=== PATIENT | male | born 1955 | race Caucasian/White ===

== ENCOUNTER 2016-09-30 03:02 | Emergency (ER) | payer BC ==
[~2016-09-30] VITALS: Ht 170.2 cm; Wt 116.4 kg
[~2016-09-30 03:02] MED LIST: ANTIVERT12.5 MG PO; ANTIVERT25 MG PO; ATORVASTATIN 40 MG T; LEVOFLOXACIN500 MG; Levaquin PO; Lipitor PO; NO MEDS; NOHOMEMEDS
[2016-09-30 04:03] LABS: EOSINOPHIL (%) 1.3 % (0-5); EOSINOPHIL COUNT 0.1 K/uL (0-0.3); HEMATOCRIT 50.1 % (38.0-50.0); IMMATURE GRANULOCYTE (%) 0.5 % (0.0-0.7); INSTRUMENT ABS NEUTROPHIL CT 5.2 K/uL; MCH 29.7 PG (29.0-34.0); MCHC 33.3 G/DL (30.0-36.0); MCV 89.1 FL (86-99); MEAN PLAT.VOLUME 10.9 uM^3 (9.0-12.4); MONOCYTE (%) 7.6 % (3-12); MONOCYTE COUNT 0.6 K/uL (0-0.8); NEUTROPHIL (%) 65.1 % (45-76); NEUTROPHIL COUNT 5.2 K/uL (1.8-6.4); PLATELET COUNT 226 K/uL (156-360); RBC DIS.WIDTH-CV 12.7 % (11.8-14.6); RBC DIS.WIDTH-SD 41.7 % (39-53); RED BLOOD COUNT 5.62 M/uL (4.00-5.50); WHITE BLOOD COUNT 7.9 K/uL (4.1-10.2)
[2016-09-30 04:18] LABS: CHLORIDE 103 mEq/L (99-109); POTASSIUM 4.2 mEq/L (3.7-5.4); SODIUM 137 mEq/L (136-147)
[2016-09-30 04:19] LABS: GLUCOSE 121 mg/dL (70-99)
[2016-09-30 04:21] LABS: ANION GAP 11 MEQ/L (2-14)
[2016-09-30 04:23] LABS: GFR ESTIMATE (CALCULATED) > 59 mL/min/
[2016-09-30 04:24] LABS: TROP-I INTERPRETATION NEGATIVE; TROPONIN-I < 0.01 ng/mL (0.0-0.30); UREA NITROGEN (BUN) 16 mg/dL (9-23)
[2016-09-30 05:30] VITALS: BP 143/82
== END 2016-09-30 05:30 | disposition home or self-care (01) ==
LOC: EME 03:02
PROVIDERS: Emergency Medicine
DX: R42 Dizziness and giddiness (principal); I10 Essential (primary) hypertension; F17.200 Nicotine dependence, unspecified, uncomplicated
CPT/HCPCS: 70450; 80048; 84484; 85025; 93005; 99281; 99285

== ENCOUNTER → 2016-10-26 | Outpatient (CLI) | payer BC | END | disposition home or self-care (01) | LOC: EKG 12:31 | DX: I70.0 Atherosclerosis of aorta (principal); I06.0 Rheumatic aortic stenosis | CPT/HCPCS: 93306 ==